=== PATIENT | female | born 1965 | race Caucasian/White ===

== ENCOUNTER → 2018-03-07 12:43 | Outpatient (CLI) | payer OTHER, SELFPAY ==
--- NOTE | 2018-03-07 | DI.MRI.S_ITS ---
PROCEDURE: MR HAND LT WO/W CON INDICATIONS: SYNOVIAL CYSTS OF LEFT WRIST TECHNIQUE: Noncontrast coronal T1 spin echo and STIR, sagittal T1 spin echo with fat saturation and STIR, axial T1 spin echo and T2 fast spin echo with fat saturation. After the administration of contrast, axial/sagittal/coronal T1 spin echo with fat saturation through the left hand. COMPARISON: [facility], CR, HAND 2V LEFT, 03/17/2013, 10:05. [facility], CR, XR HAND 3+ VIEWS BILATERAL, 02/05/2018, 10:43. FINDINGS: Image quality: Excellent. Bones: No fracture identified. There is synovial enhancement and thickening primarily involving the DIP joints of the index and middle fingers, where there is central erosive appearance seen on the comparison radiographs from 02/05/18. Marrow signal change seen in the lunate is present although unclear if there is actual enhancement (possibly cyst) and radiographically this appears unchanged 03/17/13. No associated synovial thickening is seen. Soft tissues: No soft tissue masses are visualized. The scanned muscles demonstrate normal overall bulk and internal signal. No definite tenosynovitis. No pathologic joint effusions are seen. The visualized flexor and extensor tendons appear grossly unremarkable IMPRESSION: Synovial enhancement and thickening most notably at the DIP joints of the index and middle fingers. Given the appearance of the comparison radiographs with central erosion, constellation of findings could represent erosive osteoarthritis. Please correlate clinically. Dictated by: Ken Craft M.D. on 03/07/2018 at 16:27 Approved by: Ken Craft M.D. on 03/07/2018 at 16:49
== END ==
PROVIDERS: PCP Family Medicine; Visit Provider Specialist/Technologist Athletic Trainer
DX: M71.332 Other bursal cyst, left wrist (principal)
CPT/HCPCS: 73220; A9579

== ENCOUNTER 2018-06-22 11:03 | Day surgery (SDC) | payer OTHER, SELFPAY ==
[2018-06-18 08:42] VITALS: BMI 34.3
[2018-06-22] VITALS (7 sets, daily range): BP systolic 135–169; BP diastolic 79–94; PULSE 66–80; RESP 16–20; TEMP 36.3–36.9; O2SAT 94–99; BMI 33.6
--- NOTE | 2018-06-22 12:38 | PM.OP.1 ---
Procedure & Clinicians Procedure: Arthrodesis 1st MTPJ, right foot Same procedure as scheduled: Yes Indications: Painful hallux valgus deformity; painful great toe joint, Right foot Surgeon: Alexandro Sue Click Yes if Unassisted: Yes Anesthesia Type: General and Local Operative Notes Closure Type: primary Specimen(s): none sent Implants & Drains: [place]ue 28 1st MTP fusion locking plate and screws Procedure in detail: Operation: The patient was taken from the day surgery area back to the OR via gurney, after having been given IV antibiotic prophylaxis. She was placed on the OR table in the supine position. General anesthesia was induced by Dr. Jang. Local anesthetic block was performed by infiltration of 12 cc of 50 50 lidocaine. A calf tourniquet was then applied, however, it was not utilized throughout the case. The foot was then prepped and draped in the usual sterile fashion from toes to knee. Procedure: Arthrodesis, 1st MTP joint, right foot (20513) Attention was directed toward the dorsum of the right foot. Following the previous surgical incision over the 1st MTP joint a slightly curvilinear incision was placed approximately 8 cm in length. Sharp and blunt dissection were carried down through the subcutaneous tissue layer and then there was quite a bit of scar tissue to cut through to get down to the bone and joint. Cautery was used for that avoiding any irritation or injury to the adjacent neurovascular structures. The 1st MTP joint was then entered and the capsular and ligamentous tissues freed up around it for adequate exposure. Dorsal dissection was carried over the 1st metatarsal. Unfortunately, the 2 remaining screws in her metatarsal were buried and could just barely be seen beneath the bone, it was actually completely grown over. These were not disturbed, as that would of required extensive amount of bony destruction to get them out of the way. At this point then joint preparation was performed, denuding the cartilage from the 1st metatarsal and base of the proximal phalanx utilizing standard Reamer instrumentation and baseball bur respectively. Cartilage was removed down to subchondral bone. Additional K-wire fenestration was performed in the met head and phalanx base. Good subchondral bleeding was achieved. The wound was aggressively irrigated with antibiotic solution. Toe was then held in anatomic position and temporarily pinned with a K-wire. Angular corrections was adequate and so using the drill guide, a 4.0 partially-threaded lag screw was placed from medial to lateral across the fusion site. The paragon-28 1st MP joint fusion locking plate system was then utilized placing a size medium, 0? angle, right locking plate dorsally and then sequentially anchoring down with locking screws. The most proximal screw in the plate could not be filled, due to the previously placed and retained deep screws. Excellent compression was found on tightening down to the plate and fixation was optimum. The wound was aggressively irrigated again with antibiotic solution. Closure of the wound was then performed in layers utilizing 3 0, 4 0, and 5 0 Vicryl respectively for the capsule, subcu and skin. Steri-Strips were placed. A postop injection of 18 cc of 0.5% Marcaine plain was administered. A light gauze compression bandage was then applied. The patient tolerated the procedure and anesthesia well without any apparent complications. She left the OR with vital signs stable and digital perfusion intact. She will be nonweightbearing for approximately 1 week. Will be seen for bandage check next week in the [place] office.
--- NOTE | 2018-06-22 12:41 | P.OP_ITS ---
Procedure & Clinicians Procedure: Arthrodesis 1st MTPJ, right foot Same procedure as scheduled: Yes Indications: Painful hallux valgus deformity; painful great toe joint, Right foot Surgeon: Alexandro Sue Click Yes if Unassisted: Yes Anesthesia Type: General and Local Operative Notes Closure Type: primary Specimen(s): none sent Implants & Drains: [place] 28 1st MTP fusion locking plate and screws Procedure in detail: Operation: The patient was taken from the day surgery area back to the OR via gurney, after having been given IV antibiotic prophylaxis. She was placed on the OR table in the supine position. General anesthesia was induced by Dr. Jang. Local anesthetic block was performed by infiltration of 12 cc of 50 50 lidocaine. A calf tourniquet was then applied , however, it was not utilized throughout the case. The foot was then prepped and draped in the usual sterile fashion from toes to knee. Procedure: Arthrodesis, 1st MTP joint, right foot ([id number]) Attention was directed toward the dorsum of the right foot. Following the previous surgical incision over the 1st MTP joint a slightly curvilinear incision was placed approximately 8 cm in length. Sharp and blunt dissection were carried down through the subcutaneous tissue layer and then there was quite a bit of scar tissue to cut through to get down to the bone and joint. Cautery was used for that avoiding any irritation or injury to the adjacent neurovascular structures. The 1st MTP joint was then entered and the capsular and ligamentous tissues freed up around it for adequate exposure. Dorsal dissection was carried over the 1st metatarsal. Unfortunately, the 2 remaining screws in her metatarsal were buried and could just barely be seen beneath the bone, it was actually completely grown over. These were not disturbed, as that would of required extensive amount of bony destruction to get them out of the way. At this point then joint preparation was performed, denuding the cartilage from the 1st metatarsal and base of the proximal phalanx utilizing standard Reamer instrumentation and baseball bur respectively. Cartilage was removed down to subchondral bone. Additional K-wire fenestration was performed in the met head and phalanx base. Good subchondral bleeding was achieved. The wound was aggressively irrigated with antibiotic solution. Toe was then held in anatomic position and temporarily pinned with a K-wire. Angular corrections was adequate and so using the drill guide, a 4.0 partially-threaded lag screw was placed from medial to lateral across the fusion site. The paragon-28 1st MP joint fusion locking plate system was then utilized placing a size medium, 0 ? angle, right locking plate dorsally and then sequentially anchoring down with locking screws. The most proximal screw in the plate could not be filled, due to the previously placed and retained deep screws. Excellent compression was found on tightening down to the plate and fixation was optimum. The wound was aggressively irrigated again with antibiotic solution. Closure of the wound was then performed in layers utilizing 3 0, 4 0, and 5 0 Vicryl respectively for the capsule, subcu and skin. Steri-Strips were placed. A postop injection of 18 cc of 0.5% Marcaine plain was administered. A light gauze compression bandage was then applied. The patient tolerated the procedure and anesthesia well without any apparent complications. She left the OR with vital signs stable and digital perfusion intact. She will be nonweightbearing for approximately 1 week. Will be seen for bandage check next week in the [place] office.
[2018-06-22] MEDS: CEFAZOLIN 2 GM/100 ML FROZ.PIGGY IV (13:00)
[2018-06-22] MEDS: LIDOCAINE 2% W/EPI INJ 20 ML INJ (13:18)
[2018-06-22] MEDS: LIDOCAINE 2% INJ SDV 5 ML INJ (13:18)
[2018-06-22] MEDS: BUPIVACAINE 0.5% (PF) VIAL 30 ML INJ (13:20)
== END 2018-06-22 15:35 | disposition home or self-care (01) ==
LOC: OR 11:04
PROVIDERS: PCP Family Medicine; Visit Provider Podiatrist
PROC: (CPT 28750; principal; 2018-06-22 12:30)
DX: M21.611 Bunion of right foot (principal); I48.91 Unspecified atrial fibrillation; I10 Essential (primary) hypertension; M79.7 Fibromyalgia; G43.909 Migraine, unspecified, not intractable, without status migrainosus
CPT/HCPCS: 28750; J0690; J1100; J2250; J2405; J2704; J3010

== ENCOUNTER 2019-01-11 20:01 | Emergency (ER) | payer OTHER, SELFPAY ==
[2019-01-11 20:05] VITALS: BP 151/88; PULSE 80; RESP 16; TEMP 37.1; O2SAT 98; BMI 35.4
--- NOTE | 2019-01-11 20:55 | PC.NURSE ---
Pt Hx Afib, on coumadin. LAST INR 3.7 on Monday. presents today with lac to the left 2nd digit from cutting herself with rotary tool yesterday. Wearing pressure dressing from home. Bleeding control. States tetanus shot is up to date. C/O pain 01/16. Awaiting on MD. Will continue to monitor.
--- NOTE | 2019-01-11 22:16 | PC.NURSE ---
Wound cleaned. MD applied sutures. Dressing applied. Pt verbalized understanding of d/c instructions and f/u in 7 days with PCP for removal. Accompanied by family.
[2019-01-11 22:21] VITALS: BP 157/88; PULSE 66; RESP 17; O2SAT 98
--- NOTE | 2019-01-12 06:07 | ED_ITS ---
HPI - Wound/Laceration General Chief Complaint: Wound/Laceration Stated Complaint: LEFT HAND INDEX FINGER LACERATION Time Seen by Provider: 01/11/19 20:04 Source: patient and family Mode of arrival: ambulatory Limitations: no limitations History of Present Illness HPI narrative: 53-year-old female with extensive cardiac history on Coumadin presents with her in the chief complaint of an accidental laceration of her left thumb while working at home. She has had a fair amount of bleeding but denies numbness, tingling or weakness. Her tetanus is current. Her laceration was suffered yesterday and they immediately applied pressure put on a dressing. She is non covered until today and up on on wrapping and noted that it was rather deep and would need to be repaired Related Data Home Medications Medication Instructions Recorded Confirmed cyclobenzaprine 5 - 20 mg PO BEDTIME PRN 06/18/18 06/18/18 diltiazem HCl 120 mg PO BID 06/18/18 06/22/18 hzbedlgvwna-[id number]-kkg C-Mn 1 tab PO BID 06/18/18 06/22/18 [Glucosamine Chondroitin MaxStr] hydrochlorothiazide 12.5 mg PO DAILY 06/18/18 06/22/18 magnesium 250 mg PO DAILY 06/18/18 06/22/18 venlafaxine 75 mg PO BID 06/18/18 06/22/18 warfarin 5 mg PO DAILY 06/18/18 06/22/18 Allergies Allergy/AdvReac Type Severity Reaction Status Date / Time bee venom protein (honey bee) Allergy Unknown Unlisted Verified 01/11/19 20:11 hydrocodone AdvReac Mild Headache Verified 01/11/19 20:11 Review of Systems Constitutional Denies chills, Denies fever(s), Denies lethargy and Denies weakness Eyes Denies change in vision, Denies eye discharge, Denies irritation and Denies loss of vision ENT Ears, Nose, Mouth, and Throat: Denies change in voice, Denies neck pain and Denies sore throat Cardiovascular Denies chest pain, Denies irregular heart rhythm, Denies lightheadedness, Denies palpitations, Denies dyspnea, Denies dyspnea on exertion and Denies orthopnea Respiratory Denies cough, Denies dyspnea, Denies dyspnea on exertion and Denies wheezing Gastrointestinal Gastrointestinal: Denies abdominal pain, Denies change in bowel habits, Denies diarrhea, Denies nausea and Denies vomiting Genitourinary Denies hematuria, Denies flank pain, Denies urinary incontinence and Denies urinary urgency Musculoskeletal Denies neck pain Integumentary/Breasts Denies pruritus, Denies erythema, Denies rash and Reports wounds Neurologic Denies confusion, Denies loss of vision and Denies weakness Psychiatric Denies anxiety, Denies confusion, Denies depression, Denies homicidal ideation and Denies suicidal ideation Endocrine Denies palpitations Hematologic/Lymphatic Denies easy bruising Allergic/Immunologic Denies wheezing [facility] Medical History Afib (Acute) Ankle sprain (Acute) Anxiety (Acute) Bunion of right foot (Acute) Chronic back pain (Acute) Concussion (Acute) Depression (Acute) Dysfunctional uterine bleeding (Acute) Dysphoric mood (Acute) Fatigue (Acute) Fibromyalgia (Acute) GERD (gastroesophageal reflux disease) (Acute) Grief reaction (Acute) Hyperglycemia (Acute) Hypertension (Acute) Lumbar strain (Acute) Metatarsalgia (Acute) Migraine headache (Acute) Murmur, cardiac (Acute) Osteoarthropathy (Acute) Pain in joint of right foot (Acute) Palpitations (Acute) Paresthesia of both hands (Acute) Right calf pain (Acute) Rotator cuff tear (Acute) Sleep disturbance (Acute) Somatic dysfunction of spine, cervical (Acute) Somnolence (Acute) Synovial cyst of left wrist (Acute) Surgical History H/O repair of rotator cuff (Acute) H/O: (Acute) History of arthroscopic knee surgery (Acute) History of breast augmentation (Acute) History of breast surgery (Acute) History of bunionectomy (Acute ~12/29/17) History of cholecystectomy (Acute) History of elbow surgery (Acute) History of endometrial ablation (Acute) History of tonsillectomy (Acute) Hx of hand surgery (Acute) S/P foot surgery, right (Acute) Status post wrist surgery (Acute) Social History household members: spouse Smoking Status: Former smoker alcohol intake: current Social History household members: spouse Smoking Status: Former smoker alcohol intake: current Exam Narrative Exam Narrative: GEN: AOx3 and in mild distress EYES: Pupils are equal, round, and reactive to light and accommodation. Extraoccular muscles are intact bilaterally. There is no subconjunctival hemorrhage or exudate. CHEST: Lungs are clear to auscultation bilaterally and free of wheezes, rales, or rhonchi. Heart rate is regular rhythm, there are no murmurs, clicks, rubs, or gallops. There is no chest wall tenderness. ABD: Abdomen is soft and nontender. There is no guarding or rebound. Bowel sounds are normal in all 4 quadrants. There is no mass or organomegaly. EXT: Full painless ROM of all extremities with no loss of sensation or strength. SKIN: 1.5 cm laceration medial aspect of left thumb approaching the nail full but not involving the nail or nail bed. Minimal active bleeding, visualized under a bloodless field and no tendon or bone involvement noted Warm, pink, and dry. No erythema or rash Initial Vital Signs Initial Vital Signs: Vital Signs Temperature 98.7 F 01/11/19 20:05 Pulse Rate 80 01/11/19 20:05 Respiratory Rate 16 01/11/19 20:05 Blood Pressure 151/88 H 01/11/19 20:05 Pulse Oximetry 98 01/11/19 20:05 Procedures Laceration Repair Laceration 1: Site: hand Side (If applicable): left Size (cm): 1.5 Description: flap Depth: simple, single layer Local Anesthetic: lidocaine 1% and with bicarb Amount of anesthesia used (mL): 2 Pre-repair: wound explored and irrigated extensively Skin layer closed with: nylon Size (cm): 5-0 Number of sutures: 4 Technique: simple, interrupted Course Vital Signs - 8 hr 01/11/19 22:21 Pulse Rate 66 Respiratory Rate 17 Blood Pressure [Right Arm] 157/88 H Pulse Oximetry 98 Discharge Plan Departure Patient Disposition: Home Clinical Impression: Laceration Discharge Date/Time: 01/11/19 22:21 Interventions: ED Discharge Assessment Last Done: 01/11/19 22:17 Instructions: DI for Laceration Repair Activity Restrictions/Additional Instructions: Please keep the wound clean and dry to the best of your ability. Please monitor for signs of infection such as redness to the skin or increasing pain. Have the sutures removed by your doctor in about 7 days. If you are unable to get into your doctor, we would be happy to remove the sutures in that same timeframe. Prescriptions: No Action cyclobenzaprine 10 mg Tablet 5 - 20 mg PO BEDTIME PRN (Reason: muscle spasms) RF: 0 venlafaxine 150 mg Capsule,Extended Release 24hr 75 mg PO BID RF: 0 diltiazem HCl 120 mg Capsule,Extended Release 12 Hr 120 mg PO BID RF: 0 warfarin 5 mg Tablet 5 mg PO DAILY RF: 0 magnesium 250 mg Tablet 250 mg PO DAILY RF: 0 enkiidzizqq-qytlwbesp-wua C-Mn [Glucosamine Chondroitin MaxStr] 500-400 mg Capsule 1 tab PO BID RF: 0 hydrochlorothiazide 12.5 mg Tablet 12.5 mg PO DAILY RF: 0 Referrals: Darron Fierro DO [Primary Care Provider] -
== END 2019-01-11 22:21 | disposition home or self-care (01) ==
PROVIDERS: Emergency Provider Emergency Medicine; PCP Family Medicine
DX: S61.211A Laceration without foreign body of left index finger without damage to nail, initial encounter (principal); W26.8XXA Contact with other sharp object(s), not elsewhere classified, initial encounter; Z79.01 Long term (current) use of anticoagulants
CPT/HCPCS: 12001; 99282; 99283

== ENCOUNTER 2019-09-30 13:41 | Emergency (ER) | payer OTHER, SELFPAY ==
[2019-09-30 13:57] VITALS: BP 162/93; PULSE 79; RESP 18; O2SAT 99
--- NOTE | 2019-09-30 13:58 | ED.GENADULT ---
HPI - General Adult General Chief complaint: Trauma Stated complaint: Fell Off Horse, Landed On Left Elbow Time Seen by Provider: 09/30/19 13:55 Source: patient Mode of arrival: Ambulatory Limitations: no limitations History of Present Illness HPI narrative: 54-year-old female here for evaluation of left elbow injury. Patient states that approximately 1 hour prior to arrival here in the emergency department she was riding her horse when the horse got spooked and she fell off the horse landing on her left elbow. She did not hit her head. There was no loss of consciousness. She was wearing a helmet. She sustained no other injury except for pain to her left elbow. Has never injured this in the past. Has not done anything for prior to arrival. Related Data Home Medications Medication Instructions Recorded Confirmed cyclobenzaprine 5 - 20 mg PO BEDTIME PRN 06/18/18 06/18/18 diltiazem HCl 120 mg PO BID 06/18/18 06/22/18 qjwlvjglrpy-ihzawwiow-qka C-Mn 1 tab PO BID 06/18/18 06/22/18 [Glucosamine Chondroitin MaxStr] hydrochlorothiazide 12.5 mg PO DAILY 06/18/18 06/22/18 magnesium 250 mg PO DAILY 06/18/18 06/22/18 venlafaxine 75 mg PO BID 06/18/18 06/22/18 warfarin 5 mg PO DAILY 06/18/18 06/22/18 Allergies Allergy/AdvReac Type Severity Reaction Status Date / Time bee venom protein (honey bee) Allergy Unknown Unlisted Verified 01/11/19 20:11 hydrocodone AdvReac Mild Headache Verified 01/11/19 20:11 Review of Systems Constitutional Constitutional: Denies fever(s), Denies frequent falls and Denies headache(s) ENT Ears, Nose, Mouth, and Throat: Denies headache(s) and Denies disequilibrium Cardiovascular Cardiovascular: Denies chest pain and Denies dyspnea Respiratory Respiratory: Denies dyspnea Gastrointestinal Gastrointestinal: Denies abdominal pain Musculoskeletal Musculoskeletal: Denies tingling Comments: Left elbow pain Integumentary/Breasts Skin/Breast: Denies lesions and Denies rash Neurologic Neurologic: Denies behavioral changes, Denies frequent falls, Denies headache(s), Denies tingling, Denies paresthesias and Denies disequilibrium Psychiatric Psychiatric: Denies behavioral changes Hematologic/Lymphatic Hematologic/Lymphatic: Denies easy bleeding and Denies easy bruising Patient History Medical History Afib (Acute) Ankle sprain (Acute) Anxiety (Acute) Bunion of right foot (Acute) Chronic back pain (Acute) Concussion (Acute) Depression (Acute) Dysfunctional uterine bleeding (Acute) Dysphoric mood (Acute) Fatigue (Acute) Fibromyalgia (Acute) GERD (gastroesophageal reflux disease) (Acute) Grief reaction (Acute) Hyperglycemia (Acute) Hypertension (Acute) Lumbar strain (Acute) Metatarsalgia (Acute) Migraine headache (Acute) Murmur, cardiac (Acute) Osteoarthropathy (Acute) Pain in joint of right foot (Acute) Palpitations (Acute) Paresthesia of both hands (Acute) Right calf pain (Acute) Rotator cuff tear (Acute) Sleep disturbance (Acute) Somatic dysfunction of spine, cervical (Acute) Somnolence (Acute) Synovial cyst of left wrist (Acute) Social History household members: spouse Smoking Status: Former smoker alcohol intake: current Smoking Status: Former smoker alcohol intake frequency: holidays/special occasions only Substance Use Type: does not use Exam Initial Vital Signs Initial Vital Signs: Vital Signs Pulse Rate 79 09/30/19 13:57 Respiratory Rate 18 09/30/19 13:57 Blood Pressure 162/93 H 09/30/19 13:57 Pulse Oximetry 99 09/30/19 13:57 Const General: cooperative, comfortable and well developed Limitations: mental status not altered HENMT Head: normal to inspection and normocephalic Resp Effort & Inspection: normal respiratory effort Cardio Rate: regular rate Skin Lesions: no lesions Rashes: no rashes Neuro General: alert and awake Cognition: normal cognition Speech: speech normal Extrem General: capillary refill normal Other: Tenderness to palpation along the medial epicondyle of the left elbow. Lateral epicondyle and olecranon process unremarkable. Patient able to pronate and supinate. Left shoulder left wrist unremarkable. Psych Appearance: grossly normal and well kempt Course Orders Ordered: ED Orders 09/30/19 13:58 XR elbow LT min 3V Stat Vital Signs Vital signs: Vital Signs - 8 hr 09/30/19 13:57 Pulse Rate 79 Respiratory Rate 18 Blood Pressure 162/93 H Pulse Oximetry 99 Medical Decision Making Imaging Data Extremity x-ray #1: Radiologist's Impression: [address] [address] XRay Report Signed Patient: Devora Alford [facility]#: [id number] : 1965Acct:[id number] Age/Sex: 54 / FDate of Service: 09/30/19 Loc: ED Accession Number: [id number] Procedure: XR elbow LT min 3V Ordering Provider: Chong Cummins D.O. PROCEDURE: XR ELBOW LT MIN 3V INDICATIONS: Medial epicondyle pain after fall TECHNIQUE: 3 views of the elbow were acquired. COMPARISON: None. FINDINGS: Bones: No displaced fractures or dislocations. No suspicious bony lesions. Mild degenerative changes of the elbow are present. Soft tissues: No elbow joint effusion. No suspicious soft tissue calcifications. IMPRESSION: No acute fractures of the elbow. Dictated by: Aron Faith M.D. on 09/30/2019 at 13:15 Approved by: Aron Faith M.D. on 09/30/2019 at 13:25 [facility] Narrative Medical decision making narrative: Patient is neurovascularly intact. She described in reported no other injuries except pain to her left elbow. There was no fractures on the x-rays. She was able to pronate and supinate. Pain seems to be isolated to the medial epicondyle. She was given a sling for comfort. Will hold on further workup for now. No indication for head CT despite the fact she is on Coumadin. She did not hit her head. She was given return precautions and follow-up instructions. She expressed understanding and agreement. Discharge Plan Departure Patient Disposition: Home Clinical Impression: Contusion of elbow, left Qualifiers: Encounter type: initial encounter Qualified Code(s): S50.02XA - Contusion of left elbow, initial encounter Instructions: DI for Elbow Pain Activity Restrictions/Additional Instructions: You can use the sling as needed for comfort. Also recommend that you ice your elbow. Contact her primary provider for follow-up. Return to the emergency department for any new or worsening symptoms Prescriptions: No Action cyclobenzaprine 10 mg Tablet 5 - 20 mg PO BEDTIME PRN (Reason: muscle spasms) RF: 0 venlafaxine 150 mg Capsule,Extended Release 24hr 75 mg PO BID RF: 0 diltiazem HCl 120 mg Capsule,Extended Release 12 Hr 120 mg PO BID RF: 0 warfarin 5 mg Tablet 5 mg PO DAILY RF: 0 magnesium 250 mg Tablet 250 mg PO DAILY RF: 0 dhartsqyjer-ejfomeynb-sxn C-Mn [Glucosamine Chondroitin MaxStr] 500-400 mg Capsule 1 tab PO BID RF: 0 hydrochlorothiazide 12.5 mg Tablet 12.5 mg PO DAILY RF: 0 Referrals: Darron Fierro DO [Primary Care Provider] -
--- NOTE | 2019-09-30 15:06 | PC.NURSE ---
Patient reports fall from horse and landed on left elbow. Pain to left elbow 7/10,is on coumadin. Denies hitting her head. ice helping with pain to elbow.
[2019-09-30 15:09] VITALS: BP 148/68; PULSE 71; RESP 16; O2SAT 100
== END 2019-09-30 15:10 | disposition home or self-care (01) ==
PROVIDERS: Emergency Provider Emergency Medicine; PCP Family Medicine
DX: S50.02XA Contusion of left elbow, initial encounter (principal); V80.010A Animal-rider injured by fall from or being thrown from horse in noncollision accident, initial encounter
CPT/HCPCS: 73080; 99282; 99283

== ENCOUNTER → 2019-10-02 10:11 | Outpatient (CLI) | payer OTHER, SELFPAY ==
--- NOTE | 2019-10-02 10:57 | DI.CT.S_ITS ---
PROCEDURE: CT SOFT TISSUE NECK W CON INDICATIONS: Localized enlarged lymph nodes TECHNIQUE: After the administration of intravenous contrast, 3.0 mm axial sections acquired from the sella to the aortic arch. Additional oblique axial 3.0 mm sections acquired through the pharynx. 3 mm thick coronal and sagittal reformats were generated. For radiation dose reduction, the following was used: automated exposure control. COMPARISON: None. FINDINGS: Image quality: Excellent. Lymph nodes: Borderline prominent cervical lymph nodes are seen, without suspicious enlargement identified. Vessels: Visualized vasculature appears patent. Neck spaces: The oropharynx, nasopharynx, and pharynx demonstrate no mucosal lesions. The vocal cords, false vocal cords, pyriform sinuses, epiglottis, vallecula, and tongue base all appear normal. Extramucosal spaces appear unremarkable. Glands: The parotid and submandibular glands appear normal. Thyroid gland demonstrates a 5 mm low-density lesion, as on series 2 image 49. Miscellaneous: Visualized brain and orbits appear normal. Lung apices appear clear. Superficial soft tissues appear normal. Bones: No suspicious bony lesions. Visualized sinuses and mastoids appear unremarkable. IMPRESSION: Borderline prominent neck lymph nodes, without dilan enlargement identified. A 5 mm right thyroid lobe lesion is incidentally noted. If clinically appropriate, please consider a dedicated thyroid ultrasound for further evaluation. Dictated by: Kalen Rene M.D. on 10/02/2019 at 10:43 Approved by: Kalen Rene M.D. on 10/02/2019 at 10:46
== END ==
PROVIDERS: PCP Family Medicine; Referring Provider Family Medicine; Visit Provider Family Medicine
DX: R59.0 Localized enlarged lymph nodes (principal); E07.9 Disorder of thyroid, unspecified
CPT/HCPCS: 70491; Q9967

== ENCOUNTER → 2019-10-10 12:45 | Outpatient (CLI) | payer OTHER, SELFPAY ==
--- NOTE | 2019-10-10 | DI.US.S_ITS ---
PROCEDURE: US THYROID INDICATIONS: THYROID NODULE TECHNIQUE: Real-time scanning was performed of the thyroid gland, with image documentation. COMPARISON: None. FINDINGS: Right: Thyroid lobe measures 4.3 x 1.2 x 1.7 cm, and is homogeneous in echotexture. Left: Thyroid lobe measures 4.3 x 1.3 x 1.4 cm, and is homogenous in echotexture. Isthmus: 5 mm thick. Nodule number: 1 Location: Right lobe Size: 0.9 x 1.0 x 1.1 cm. Composition: Solid Echogenicity: Hypoechoic Shape: wider than tall. Margins: Ill-defined Echogenic foci: None Total points: 4 ACR TI-RADS category: 4 Nodule number: 2 Location: Left thyroid lobe Size: 0.6 x 0.6 x 0.6 cm. Composition: Solid Echogenicity: Hypoechoic Shape: wider than tall. Margins: Smooth Echogenic foci: None Total points: 4 ACR TI-RADS category: 4 IMPRESSION: 1. 1.1 cm right thyroid lobe nodule. TI-RADS 4. Sonographic followup at one, 3, and 5 years recommended. 2. 0.6 cm left thyroid lobe nodule. TI RADS 4. No follow up recommended given size. ACR TI-RADS definitions and recommendations: TI-RADS 1 (benign): 0 points. FNA not needed. TI-RADS 2 (not suspicious): 2 points. FNA not needed. TI-RADS 3 (mildly suspicious): 3 points. * FNA if 2.5 cm or larger, follow up if 1.5 cm or larger (at 1, 3, and 5 years). TI-RADS 4 (moderately suspicious): 4-6 points. * FNA if 1.5 cm or larger, follow up if 1 cm or larger (at 1, 2, 3, and 5 years). TI-RADS 5 (highly suspicious): 7 points or more. * FNA if 1 cm or larger, follow up if 0.5 cm or larger (every year for 5 years). Dictated by: Anna Ibarra M.D. on 10/10/2019 at 14:10 Approved by: Anna Ibarra M.D. on 10/10/2019 at 14:17
== END ==
PROVIDERS: PCP Family Medicine; Referring Provider Family Medicine; Visit Provider Family Medicine
DX: E04.2 Nontoxic multinodular goiter (principal)
CPT/HCPCS: 76536

== ENCOUNTER 2019-12-09 16:50 | Emergency (ER) | payer OTHER, SELFPAY ==
[2019-12-09 16:54] VITALS: PULSE 68; RESP 16; TEMP 35.8; O2SAT 99; BMI 30.9
--- NOTE | 2019-12-09 19:34 | ED_ITS ---
HPI - Skin/Abscess/Foreign Bdy <Jaqueline Morrow PA-C - Last Filed: 12/10/19 00:44> General Chief complaint: Skin/Abscess/Foreign Body Stated complaint: RIGHT HAND WOUND HEAT SWELLING Time Seen by Provider: 12/09/19 19:01 Source: patient Mode of arrival: Ambulatory Limitations: no limitations History of Present Illness HPI narrative: This is a 54-year-old woman with a history of WPW with ablation, on warfarin who presents to the emergency department with right hand pain, redness and swelling after sustaining an injury on , 4 days ago when she was playing with her dog. She states that she was throwing a pine cone really hard and her thumb smashed directly op and her dog's canine making, drawing blood and making a small puncture wound. She kept it clean and it seemed okay but then yesterday she started having stiffness in the thumb joint adjacent to the puncture as well as a little bit of redness and heat over the thumb and then over the top of her hand that has worsened today so she presented to the emergency department. She says the last couple of days she has had less appetite than usual and has also had some mild headaches although acknowledges that she often does have mild headaches. She denies any other symptoms including fever, chills, nausea, vomiting, diarrhea, abdominal pain or any other symptoms. MD complaint: discoloration and other (Pain, heat, puncture from dog tooth) Onset (ago): day(s) (4 ) Tetanus up to date: yes (2017) Location: L hand Severity: mild Severity scale (1-10): 1 Quality: aching and constant Pain Consistency: constant Relieving factors: none Exacerbating factors: palpation Context: other (smashed hand into dog's canine) Associated symptoms: other (slightly reduced appetite last 2 days) Related Data Home Medications Medication Instructions Recorded Confirmed cyclobenzaprine 5 - 20 mg PO BEDTIME PRN 06/18/18 06/18/18 diltiazem HCl 120 mg PO BID 06/18/18 06/22/18 pzqrhavargg-btokykovu-ffg C-Mn 1 tab PO BID 06/18/18 06/22/18 [Glucosamine Chondroitin MaxStr] hydrochlorothiazide 12.5 mg PO DAILY 06/18/18 06/22/18 magnesium 250 mg PO DAILY 06/18/18 06/22/18 venlafaxine 75 mg PO BID 06/18/18 06/22/18 warfarin 5 mg PO DAILY 06/18/18 06/22/18 Previous Rx's Medication Instructions Recorded amoxicillin-pot clavulanate 1 tab PO BID #14 tab 12/09/19 amoxicillin-pot clavulanate 1 tab PO BID #14 tab 12/09/19 Allergies Allergy/AdvReac Type Severity Reaction Status Date / Time bee venom protein (honey bee) Allergy Unknown Unlisted Verified 12/09/19 16:58 hydrocodone AdvReac Mild Headache Verified 12/09/19 16:58 Review of Systems <Jaqueline Morrow PA-C - Last Filed: 12/10/19 00:44> Review of Systems Narrative: GENERAL: Denies chills, fatigue, malaise, fever, sweats. HEENT: Denies sinus pain, ear pain, sore throat, difficulty swallowing, dizziness. RESPIRATORY: Denies dyspnea, cough, wheezing, hemoptysis, sputum. CARDIOVASCULAR: Denies chest pain, palpitations, orthopnea, edema, GASTROINTESTINAL: Denies nausea, vomiting, abdominal pain, diarrhea, co nstipation, melena. : Denies dysuria, frequency, incontinence, hematuria, urinary retention. MUSCULOSKELETAL: denies weakness, joint pain, or bony pain SKIN: Positive for grossly healed puncture wound to her right thumb and redness to the dorsum of her right hand, positive for slight ?stiff feeling? with movement of her right digits and wrist Denies additional rash, skin lesions, or other NEUROLOGIC: Denies weakness, headache, numbness, change in speech, confusion, seizures, incoordination. PSYCHIATRIC: No concerning psychosocial issues. 12 point review of systems is negative except for those stated above Patient History <Jaqueline Morrow PA-C - Last Filed: 12/10/19 00:44> Social History household members: spouse Smoking Status: Former smoker alcohol intake: current Smoking Status: Former smoker alcohol intake frequency: holidays/special occasions only Substance Use Type: does not use Exam <JUAN ANTONIO Chatman Last Filed: 12/10/19 00:44> Narrative Exam Narrative: GENERAL: 54year old patient appears stated age. Well-nourished, well-developed patient, in mild distress. HEAD: Atraumatic. Normocephalic. EYES: Pupils equal round and reactive. Extraocular motions intact. No scleral icterus. No injection or drainage. ENT: Nose without bleeding, purulent drainage. Throat without erythema, tonsillar hypertrophy or exudate. Airway patent. NECK: Trachea midline. Non tender CARDIOVASCULAR: Regular rate and rhythm without murmurs, gallops, or rubs. RESPIRATORY: Clear to auscultation. Breath sounds equal bilaterally. No wheezes, rales, or rhonchi. GASTROINTESTINAL: Abdomen soft, non-tender, nondistended. EXTREMITIES: There is an approximately 6 x 7 cm area of slight erythema, with tenderness and heat to the dorsum of her right hand it is associated with a very slightly erythematous region surrounding the healing puncture wound. The right 1st digit is slightly swollen in appearance compared to the left 1st digit. Range of motion is intact in the fingers and wrist. Capillary refill is less than 2 seconds sensation is intact in the affected hand. No edema or joint tenderness. BACK: Nontender without deformity or crepitance. No flank tenderness. NEURO: AOx3. SKIN: No rash or erythema of visible areas Initial Vital Signs Initial Vital Signs: Vital Signs Temperature 96.4 F L 12/09/19 16:54 Pulse Rate 68 12/09/19 16:54 Respiratory Rate 16 12/09/19 16:54 Pulse Oximetry 99 12/09/19 16:54 <Lori Woodard MD - Last Filed: 12/10/19 03:25> Initial Vital Signs Initial Vital Signs: Vital Signs Temperature 96.4 F L 12/09/19 16:54 Pulse Rate 68 12/09/19 16:54 Respiratory Rate 16 12/09/19 16:54 Pulse Oximetry 99 12/09/19 16:54 Course <Jaqueline Morrow PA-C - Last Filed: 12/10/19 00:44> Orders Ordered: ED Orders 12/09/19 19:48 XR hand RT min 3V Stat 12/09/19 20:07 Complete Blood Count AUTO DIFF Stat Prothrombin Time INR Stat Discontinued Medications Amoxicillin/Clavulanate Potassium (Augmentin 875-125 Mg) 1 tab PO NOW ONE Stop: 12/09/19 20:22 Last Admin: 12/09/19 20:42 Dose: 1 tab Documented by: JOYCE Vital Signs Vital signs: Vital Signs - 8 hr 12/09/19 21:01 Pulse Rate 63 Respiratory Rate 16 Blood Pressure [Left Arm] 179/86 H Pulse Oximetry 98 <Lori Woodard MD - Last Filed: 12/10/19 03:25> Orders Ordered: ED Orders 12/09/19 19:48 XR hand RT min 3V Stat 12/09/19 20:07 Complete Blood Count AUTO DIFF Stat Prothrombin Time INR Stat Discontinued Medications Amoxicillin/Clavulanate Potassium (Augmentin 875-125 Mg) 1 tab PO NOW ONE Stop: 12/09/19 20:22 Last Admin: 12/09/19 20:42 Dose: 1 tab Documented by: JOYCE Vital Signs Vital signs: Vital Signs - 8 hr 12/09/19 21:01 Pulse Rate 63 Respiratory Rate 16 Blood Pressure [Left Arm] 179/86 H Pulse Oximetry 98 MDM - Skin/Abscess/Foreign Bdy <Jaqueline Morrow PA-C - Last Filed: 12/10/19 00:44> Differential Diagnosis Differential diagnosis: Likely abscess of skin or subcutaneous tissue Medical Records Attestation: I reviewed the patient's medical records. Lab Data Attestation: I reviewed the patient's lab results. Result diagrams: 12/09/19 20:07 Labs: Lab Results 12/09/19 12/09/19 Range/Units 20:07 20:07 WBC 9.4 (4.5-11.0) X10^3/uL RBC 4.66 (4.0-5.2) X10^6/uL Hgb 14.6 (12.0-16.0) g/dL Hct 41.5 (36-46) % MCV 89.0 (80-100) fL MCH 31.2 (26-34) PG MCHC 35.1 (30-36) % RDW 13.6 (11.6-14.8) % Plt Count 315 (150-400) X10^3/uL Neut % (Auto) 59.3 (50-75) % Lymph % (Auto) 29.7 (25-40) % [place] % (Auto) 8.3 (3-14) % Eos % (Auto) 2.0 (2-4) % Baso % (Auto) 0.7 (0-2) % Neut # (Auto) 5600 (0768-2562) /uL Lymph # (Auto) 2800 (4616-4522) /uL [place] # (Auto) 800 (0-900) /uL Eos # (Auto) 200 (0-450) /uL Baso # (Auto) 100 (0-100) /uL PT 29.6 H (10.1-12.7) SECONDS INR 2.6 H (0.9-1.3) Imaging Data Extremity x-ray #1: Attestation: I personally reviewed and interpreted this imaging study as follows: Radiologist's Impression: [address] [address] XRay Report Signed Patient: Devora Alford [facility]#: [id number] : 1965Acct:[id number] Age/Sex: 54 / FDate of Service: 12/09/19 Loc: ED Accession Number: [id number] Procedure: XR hand RT min 3V Ordering Provider: Jaqueline Morrow P.A-C PROCEDURE: XR HAND RT MIN 3V INDICATIONS: cellulitis/dog canine puncture TECHNIQUE: 3 views of the hand(s) acquired. COMPARISON: [facility], CR, XR HAND 3+ VIEWS BILATERAL, 02/05/2018, 10:43. [facility], , HAND 2V LEFT, 03/17/2013, 10:05. FINDINGS: Bones: No fractures or dislocations. Carpal bones are normally aligned. No suspicious bony lesions. Prominent, multi-digit IP degenerative changes most severe at the second and fifth IP joints demonstrating prominent areas of erosion particularly at these digits. Soft tissues: No suspicious soft tissue calcifications. IMPRESSION: Significant degenerative changes suggestive of erosive arthritis as above. No visualized fracture. Dictated by: Faye Basilio M.D. on 12/09/2019 at 20:34 Approved by: Faye Basilio M.D. on 12/09/2019 at 20:36 MDM Narrative Medical decision making narrative: This is a well-appearing 54-year-old woman with a history significant for Xmnui-Zpdjviggk-Egnop and atrial fibrillation with previous ablation currently on warfarin who presents to the emergency department complaining of increasing right hand pain, redness and swelling since her hand smashed into her dog's canine on 3 days ago and created a small puncture wound. Her exam is consistent with a cellulitis, likely due to the dog tooth puncture wound she sustained on her thumb. I have low suspicion for tendon or tendon sheath involvement or infection at this time and Orthopedics was not consulted. As she is on warfarin therapy and has not had her INR checked in over a month he was checked in the emergency department today she is slightly out of therapeutic range (which for her is 2-2.3) at 2.6. CBC was also checked given her reduced appetite the last few days in association with the progression of her cellulitis over the same time course. This was unremarkable. I have low suspicion for a systemic infection. Given her current therapy with warfarin, she was given specific instructions regarding frequent INR checks during antibiotic therapy, specifically to have it checked at least every 3 days. She was initiated with therapy of Augmentin here in the emergency department 1st dose was given, with prescription for 7 days course of antibiotics to follow-up. She was provided with emergency return precautions, and all questions were answered. <Lori Woodard MD - Last Filed: 12/10/19 03:25> Lab Data Labs: Lab Results 12/09/19 12/09/19 Range/Units 20:07 20:07 WBC 9.4 (4.5-11.0) X10^3/uL RBC 4.66 (4.0-5.2) X10^6/uL Hgb 14.6 (12.0-16.0) g/dL Hct 41.5 (36-46) % MCV 89.0 (80-100) fL MCH 31.2 (26-34) PG MCHC 35.1 (30-36) % RDW 13.6 (11.6-14.8) % Plt Count 315 (150-400) X10^3/uL Neut % (Auto) 59.3 (50-75) % Lymph % (Auto) 29.7 (25-40) % [place] % (Auto) 8.3 (3-14) % Eos % (Auto) 2.0 (2-4) % Baso % (Auto) 0.7 (0-2) % Neut # (Auto) 5600 (3612-5784) /uL Lymph # (Auto) 2800 (8392-5006) /uL [place] # (Auto) 800 (0-900) /uL Eos # (Auto) 200 (0-450) /uL Baso # (Auto) 100 (0-100) /uL PT 29.6 H (10.1-12.7) SECONDS INR 2.6 H (0.9-1.3) Discharge Plan Departure Patient Disposition: Home Clinical Impression: Cellulitis Qualifiers: Site of cellulitis: extremity Site of cellulitis of extremity: upper extremity Laterality: right Qualified Code(s): L03.113 - Cellulitis of right upper limb Discharge Date/Time: 12/09/19 21:21 Instructions: DI for Cellulitis -- Adult Activity Restrictions/Additional Instructions: You for letting us to be part of her care in the emergency department today. I prescribed an antibiotic for your cellulitis, Augmentin. While this antibiotic has less reactivity with warfarin then some do, it is still extremely important to monitor your INR frequently while you are taking the antibiotic, it is extremely important that you have your INR checked 2 to 3 times a week during the course of antibiotic therapy. There is no evidence of an emergent or life threatening illness at this time, but follow up with your doctor in 1-2 days is recommended nonetheless to continue to rule out serious underlying causes of your symptoms. Please call the office for an appointment. Please return to the Emergency Department for any worsening or persistent symptoms. Please take your medications as directed. If you develop any new or worsening symptoms, such as increasing pain, redness, swelling in your hand or any other systemic symptoms such as fever, nausea, vomiting, diarrhea or chills please do not hesitate to seek medical care return to the emergency department. He received your 1st dose of Augmentin in the emergency department today during her visit, and I have a prescribed the remainder of your 7 day course of antibiotics and sent that to the [facility] in [place]. Prescriptions: New amoxicillin-pot clavulanate 875-125 mg tablet 1 tab PO BID Qty: 14 RF: 0 amoxicillin-pot clavulanate 875-125 mg tablet 1 tab PO BID Qty: 14 RF: 0 No Action cyclobenzaprine 10 mg Tablet 5 - 20 mg PO BEDTIME PRN (Reason: muscle spasms) RF: 0 venlafaxine 150 mg Capsule,Extended Release 24hr 75 mg PO BID RF: 0 diltiazem HCl 120 mg Capsule,Extended Release 12 Hr 120 mg PO BID RF: 0 warfarin 5 mg Tablet 5 mg PO DAILY RF: 0 magnesium 250 mg Tablet 250 mg PO DAILY RF: 0 yipoysbjnwc-xcjasypav-gfk C-Mn [Glucosamine Chondroitin MaxStr] 500-400 mg Capsule 1 tab PO BID RF: 0 hydrochlorothiazide 12.5 mg Tablet 12.5 mg PO DAILY RF: 0 Referrals: Darron Fierro DO [Primary Care Provider] - <Lori Woodard MD - Last Filed: 12/10/19 03:25> Cosign ED Attending Cosignature Attestation: I was immediately available in the depart ment for consultation throughout this patient's visit. I agree with documentation as above. Lori Woodard MD
--- NOTE | 2019-12-09 19:48 | DI.RAD.S_ITS ---
PROCEDURE: XR HAND RT MIN 3V INDICATIONS: cellulitis/dog canine puncture TECHNIQUE: 3 views of the hand(s) acquired. COMPARISON: [facility], CR, XR HAND 3+ VIEWS BILATERAL, 02/05/2018, 10:43. [facility], CR, HAND 2V LEFT, 03/17/2013, 10:05. FINDINGS: Bones: No fractures or dislocations. Carpal bones are normally aligned. No suspicious bony lesions. Prominent, multi-digit IP degenerative changes most severe at the second and fifth IP joints demonstrating prominent areas of erosion particularly at these digits. Soft tissues: No suspicious soft tissue calcifications. IMPRESSION: Significant degenerative changes suggestive of erosive arthritis as above. No visualized fracture. Dictated by: Faye Basilio M.D. on 12/09/2019 at 20:34 Approved by: Faye Basilio M.D. on 12/09/2019 at 20:36
[2019-12-09 20:17] LABS: Add Manual Diff / Slide Review NO; Basophils Absolute Auto 100 /uL (0-100); Basophils Percent Auto 0.7 % (0-2); Eosinophils Absolute Auto 200 /uL (0-450); Hematocrit 41.5 % (36-46); Hemoglobin 14.6 g/dL (12.0-16.0); Lymphocytes Absolute Auto 2800 /uL (1100-4500); Lymphocytes Percent Auto 29.7 % (25-40); Mean Corpuscular HGB Conc 35.1 % (30-36); Mean Corpuscular Hemoglobin 31.2 PG (26-34); Monocytes Absolute Auto 800 /uL (0-900); Monocytes Percent Auto 8.3 % (3-14); Neutrophils Absolute Auto 5600 /uL (1500-7000); Neutrophils Percent Auto 59.3 % (50-75); Platelet Count 315 X10^3/uL (150-400); Red Blood Cell Count 4.66 X10^6/uL (4.0-5.2); Red Cell Distribution Width 13.6 % (11.6-14.8); White Blood Cell Count 9.4 X10^3/uL (4.5-11.0)
[2019-12-09 20:24] LABS: INR 2.6 (0.9-1.3); Prothrombin Time 29.6 SECONDS (10.1-12.7)
[2019-12-09] MEDS: AMOXICILLIN/CLAV 875/125 MG 1 TAB PO (20:42)
[2019-12-09 21:01] VITALS: BP 179/86; PULSE 63; RESP 16; O2SAT 98
== END 2019-12-09 21:21 | disposition home or self-care (01) ==
PROVIDERS: Emergency Provider Student in an Organized Health Care Education/Training Program; PCP Family Medicine
DX: L03.113 Cellulitis of right upper limb (principal); Z79.01 Long term (current) use of anticoagulants; W26.9XXA Contact with unspecified sharp object(s), initial encounter
CPT/HCPCS: 36415; 73130; 85025; 85610; 99283

== ENCOUNTER → 2020-09-24 07:37 | Outpatient (CLI) | payer OTHER, SELFPAY ==
--- NOTE | 2020-09-24 | DI.US.S_ITS ---
PROCEDURE: US THYROID INDICATIONS: NON TOXIC SINGULAR NODULE TECHNIQUE: Real-time scanning was performed of the thyroid gland, with image documentation. COMPARISON: [facility], US, US THYROID, 10/10/2019, 13:04. FINDINGS: Right: Thyroid lobe measures 5.1 x 1.7 x 1.7 cm, and is homogeneous in echotexture. Left: Thyroid lobe measures 4.6 x 1.6 x 1.4 cm, and is homogenous in echotexture. Isthmus: 4.0 mm thick. Nodule number: 1 Location: Right mid Size: Decreased at 0.8 x 0.6 x 0.7 cm. Composition: Solid Echogenicity: Hypoechoic Shape: wider than tall. Margins: Smooth Echogenic foci: None Total points: 4 ACR TI-RADS category: Moderately suspicious Nodule number: 2 Location: Left mid Size: No significant change at 1.0 x 0.7 x 0.7 cm. Composition: Solid Echogenicity: Hypoechoic Shape: wider than tall. Margins: Irregular Echogenic foci: None Total points: 5 ACR TI-RADS category: Moderately suspicious IMPRESSION: Stable appearance of small bilateral thyroid nodules. Recommend continued followup ultrasound as detailed below. ACR TI-RADS definitions and recommendations: TI-RADS 1 (benign): 0 points. FNA not needed. TI-RADS 2 (not suspicious): 2 points. FNA not needed. TI-RADS 3 (mildly suspicious): 3 points. * FNA if 2.5 cm or larger, follow up if 1.5 cm or larger (at 1, 3, and 5 years). TI-RADS 4 (moderately suspicious): 4-6 points. * FNA if 1.5 cm or larger, follow up if 1 cm or larger (at 1, 2, 3, and 5 years). TI-RADS 5 (highly suspicious): 7 points or more. * FNA if 1 cm or larger, follow up if 0.5 cm or larger (every year for 5 years). Dictated by: David Chacko [facility] Interpreted: Parveen Loera MD on 09/24/2020 at 13:11 Approved by: Parveen Loera M.D. on 09/24/2020 at 14:44
== END ==
PROVIDERS: PCP Family Medicine; Referring Provider Family Medicine; Visit Provider Family Medicine
DX: E04.2 Nontoxic multinodular goiter (principal)
CPT/HCPCS: 76536

== ENCOUNTER → 2021-09-03 11:55 | Outpatient (CLI) | payer OTHER, SELFPAY ==
--- NOTE | 2021-09-03 11:57 | DI.US.S_ITS ---
PROCEDURE: US THYROID INDICATIONS: FOLLOW-UP NODULES TECHNIQUE: Real-time scanning was performed of the thyroid gland, with image documentation. COMPARISON: [facility], US, US THYROID, 09/24/2020, 8:03. FINDINGS: Right: Thyroid lobe measures 4.2 x 1.9 x 1.7 cm, and is homogeneous in echotexture. Left: Thyroid lobe measures 4 x 1.4 x 1.2 cm, and is homogenous in echotexture. Isthmus: 0.3 cm thick. Nodule number: 1 Location: Right mid Size: 0.8 x 0.8 x 0.6 cm. Unchanged. Composition: Solid Echogenicity: Hypoechoic Shape: wider than tall. Margins: Smooth Echogenic foci: None Total points: 4 ACR TI-RADS category: LR 4, moderately suspicious Nodule number: 2 Location: Left mid Size: 0.8 x 0.7 x 0.6 cm. Not significantly changed. Composition: Solid Echogenicity: Hypoechoic Shape: wider than tall. Margins: Ill-defined Echogenic foci: None Total points: 4 ACR TI-RADS category: LR 4, moderately suspicious IMPRESSION: Subcentimeter thyroid nodules are not significantly changed. ACR TI-RADS definitions and recommendations: TI-RADS 1 (benign): 0 points. FNA not needed. TI-RADS 2 (not suspicious): 2 points. FNA not needed. TI-RADS 3 (mildly suspicious): 3 points. * FNA if 2.5 cm or larger, follow up if 1.5 cm or larger (at 1, 3, and 5 years). TI-RADS 4 (moderately suspicious): 4-6 points. * FNA if 1.5 cm or larger, follow up if 1 cm or larger (at 1, 2, 3, and 5 years). TI-RADS 5 (highly suspicious): 7 points or more. * FNA if 1 cm or larger, follow up if 0.5 cm or larger (every year for 5 years). Dictated by: Riley Thomas M.D. on 09/03/2021 at 16:17 Approved by: Riley Thomas M.D. on 09/03/2021 at 16:21
== END ==
PROVIDERS: PCP Family Medicine; Referring Provider Family Medicine; Visit Provider Family Medicine
DX: E04.2 Nontoxic multinodular goiter (principal)
CPT/HCPCS: 76536

== ENCOUNTER 2021-12-19 19:54 | Emergency (ER) | payer OTHER, SELFPAY ==
--- NOTE | 2021-12-19 20:07 | DI.RAD.S_ITS ---
PROCEDURE: XR FOOT LT MIN 3V INDICATIONS: possible fb TECHNIQUE: 3 views of the foot were acquired. COMPARISON: None. FINDINGS: Bones: No fractures or dislocations. No suspicious bony lesions. Soft tissues: No tibiotalar joint effusion. Achilles tendon appears normal. IMPRESSION: 1. No radiopaque foreign body Dictated by: Julius Perez M.D. on 12/19/2021 at 20:37 Approved by: Julius Perez M.D. on 12/19/2021 at 20:37
[2021-12-19 20:41] VITALS: BP 170/79; PULSE 71; RESP 15; TEMP 36.9; O2SAT 97
[2021-12-19] MEDS: OXYCODONE/ACETAMINOPHEN 5/325 TABLET 1 TAB PO (21:22)
--- NOTE | 2021-12-19 22:00 | ED_ITS ---
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 There was a minor amount of bleeding, no evidence of any retained materials but she is having significant pain and comes in for further evaluation. Related Data Home Medications Medication Instructions Recorded Confirmed cyclobenzaprine 10 mg tablet 5 - 20 mg PO BEDTIME PRN muscle 06/18/18 06/18/18 spasms diltiazem HCl 120 mg 120 mg PO BID 06/18/18 06/22/18 capsule,extended release 12 hr bxqjvmlwgfs-cpotpvfrd-wis C-Mn 500 1 tab PO BID 06/18/18 06/22/18 mg-400 mg capsule (Glucosamine Chondroitin Maximum Strength) hydrochlorothiazide 12.5 mg tablet 12.5 mg PO DAILY 06/18/18 06/22/18 magnesium 250 mg tablet 250 mg PO DAILY 06/18/18 06/22/18 venlafaxine 150 mg 75 mg PO BID 06/18/18 06/22/18 capsule,extended release 24 hr warfarin 5 mg tablet 5 mg PO DAILY 06/18/18 06/22/18 Previous Rx's Medication Instructions Recorded amoxicillin 875 mg-potassium 1 tab PO BID #14 tabs 12/09/19 clavulanate 125 mg tablet amoxicillin 875 mg-potassium 1 tab PO BID cellulitis #14 tabs 12/09/19 clavulanate 125 mg tablet oxycodone-acetaminophen 5 mg-325 1 tab PO Q6H PRN pain #10 tabs 12/19/21 mg tablet Allergies Allergy/AdvReac Type Severity Reaction Status Date / Time bee venom protein (honey bee) Allergy Unknown Unlisted Verified 12/09/19 16:58 hydrocodone AdvReac Mild Headache Verified 12/09/19 16:58 Review of Systems Review of Systems Narrative: Pertinent positive and negative findings as per HPI Remainder of review of systems is otherwise unremarkable for Constitutional: Fevers, chills, weakness ENT: No sore throat, neck pain, ear pain CV: Chest pain, palpitations, Respiratory: Cough, wheeze, dyspnea GI: Nausea, vomiting, diarrhea, : Dysuria, hematuria, Patient History Medical History Afib Ankle sprain Anxiety Bunion of right foot Chronic back pain Concussion Depression Dysfunctional uterine bleeding Dysphoric mood Fatigue Fibromyalgia GERD (gastroesophageal reflux disease) Grief reaction Hyperglycemia Hypertension Lumbar strain Metatarsalgia Migraine headache Murmur, cardiac Osteoarthropathy Pain in joint of right foot Palpitations Paresthesia of both hands Right calf pain Rotator cuff tear Sleep disturbance Somatic dysfunction of spine, cervical Somnolence Synovial cyst of left wrist Surgical History H/O repair of rotator cuff H/O: History of arthroscopic knee surgery History of breast augmentation History of breast surgery History of bunionectomy (~12/29/17) History of cholecystectomy History of elbow surgery History of endometrial ablation History of tonsillectomy Hx of hand surgery S/P foot surgery, right Status post wrist surgery Social History household members: spouse Smoking Status: Former smoker alcohol intake: current Smoking Status: Former smoker alcohol intake frequency: holidays/special occasions only Substance Use Type: does not use Exam Initial Vital Signs Initial Vital Signs: Vital Signs Temperature 98.4 F 12/19/21 20:41 Pulse Rate 71 12/19/21 20:41 Respiratory Rate 15 12/19/21 20:41 Blood Pressure 170/79 H 12/19/21 20:41 Pulse Oximetry 97 12/19/21 20:41 Oxygen Delivery Method 12/19/21 20:41 General: Alert appropriate in no acute distress Respiratory: Able to speak in full sentences, no obvious respiratory distress Skin: No obvious rashes, warm and dry Neurologic: Grossly intact no obvious asymmetries or abnormalities Psych: appropriate insight and affect, cooperative Extremity: Left forefoot with minor puncture wound on the plantar surface. Exquisitely tender to touch through forefoot including dorsum. There is no significant swelling or obvious bleeding. The dramatic pain seems out of proportion to the wound itself with no evidence of tenseness developing in the foot or concern for any type of compartment syndrome Course Orders Ordered: ED Orders 12/19/21 20:07 XR foot LT min 3V Stat Discontinued Medications Morphine Sulfate (Morphine 4 Mg/Ml Inj) 10 mg IM NOW ONE Stop: 12/19/21 22:07 Last Admin: 12/19/21 22:43 Dose: 10 mg Documented By: TRACY Oxycodone/Acetaminophen (Oxycodone/Acetaminophen 5/325 Tablet) 1 tab PO NOW ONE Stop: 12/19/21 21:06 Last Admin: 12/19/21 21:22 Dose: Not Given Documented By: KIRSTY Oxycodone/Acetaminophen (Oxycodone/Acetaminophen 5/325 Tablet) 1 tab PO NOW ONE Stop: 12/19/21 21:18 Last Admin: 12/19/21 21:22 Dose: 1 tab Documented By: KIRSTY Oxycodone/Acetaminophen (Oxycodone/Apap 5/325 Prepack) 1 bottle MISC SEEINSTR ONE Stop: 12/19/21 22:07 Last Admin: 12/19/21 22:43 Dose: 1 bottle Documented By: TRACY Vital Signs Vital signs: Vital Signs - 8 hr 12/19/21 20:41 12/19/21 23:18 Temperature 98.4 F Pulse Rate 71 64 Respiratory Rate 15 16 Blood Pressure 170/79 H 141/65 H Pulse Oximetry 97 97 Oxygen Delivery Method Room Air Room Air MDM - Wound/Laceration MDM Narrative Medical decision making narrative: 56-year-old woman with minor puncture wound bottom of the left foot with set sig nificant amount of pain. No evidence of residual foreign body or significant introduction of debris or foreign material. She is not diabetic. There is no evidence of significant bleeding into the wound she is on Coumadin so more bleeding might be expected. I suspect she probably had the insulting body injury nerve which is causing the significant pain. She is neurovascularly intact distal to the wound. She is up-to-date on her tetanus shot. At this point will ask her to elevate the foot. I do not see any indication for antibiotics at this time but have cautioned her carefully about signs and symptoms of wound infections, deep infections and complications of bleeding in deeper spaces as result of her anticoagulation. She verbalizes understanding, questions are answered and she is safe for home discharge Discharge Plan Departure Patient Disposition: Home Clinical Impression: Puncture wound of foot Instructions: DI for Puncture Wound Activity Restrictions/Additional Instructions: Thank you for coming in this evening. The puncture wound is quite small and there is no obvious foreign body appreciated on the x-ray. I suspect you either hit a nerve are having a small amount of bleeding in the mid foot which is wire having so much pain. Keeping the foot elevated will cer tainly help. Using 1-2 Percocet every 6 hours for pain and crutches if that is helpful for you. If you are choosing to use narcotics please make sure you are also using stool softener. If there is any redness, drainage, streaks running up your foot or dramatic swelling you need to come in for further evaluation Prescriptions: New oxycodone-acetaminophen 5-325 mg tablet 1 tab PO Q6H PRN (Reason: pain) Qty: 10 0RF No Action cyclobenzaprine 10 mg Tablet 5 - 20 mg PO BEDTIME PRN (Reason: muscle spasms) Rx Instructions: To help with sleep and pain venlafaxine 150 mg Capsule,Extended Release 24hr 75 mg PO BID diltiazem HCl 120 mg Capsule,Extended Release 12 Hr 120 mg PO BID warfarin 5 mg Tablet 5 mg PO DAILY Label Comments: ums-slt-gcj-monday takes 10mg monday, and monday takes 7.5 mg magnesium 250 mg Tablet 250 mg PO DAILY jzietfxphqu-tnmklbixt-bvb C-Mn [Glucosamine Chondroitin MaxStr] 500-400 mg Capsule 1 tab PO BID hydrochlorothiazide 12.5 mg Tablet 12.5 mg PO DAILY amoxicillin-pot clavulanate 875-125 mg tablet 1 tab PO BID Qty: 14 0RF amoxicillin-pot clavulanate 875-125 mg tablet 1 tab PO BID Qty: 14 0RF Referrals: Darron Fierro DO [Primary Care Provider] - Visit Report Forms: Patient Portal/API
[2021-12-19] MEDS: OXYCODONE/APAP 5/325 PREPACK 1 BOTTLE MISC (22:43)
[2021-12-19] MEDS: MORPHINE 4 MG/ML INJ 10 MG IM (22:43)
[2021-12-19 23:18] VITALS: BP 141/65; PULSE 64; RESP 16; O2SAT 97
== END 2021-12-19 23:19 | disposition home or self-care (01) ==
PROVIDERS: Emergency Provider Emergency Medicine; PCP Family Medicine
DX: S91.332A Puncture wound without foreign body, left foot, initial encounter (principal); Z79.01 Long term (current) use of anticoagulants
CPT/HCPCS: 73630; 96372; 99283; J2270

== ENCOUNTER 2023-06-10 00:58 | Emergency (ER) | payer OTHER, SELFPAY ==
[2023-06-10 01:02] VITALS: BP 157/70; PULSE 71; RESP 18; TEMP 36.4; O2SAT 99; BMI 32.8
--- NOTE | 2023-06-10 01:05 | DI.RAD.S_ITS ---
PROCEDURE: XR ANKLE LT MIN 3V INDICATIONS: Fall, twisted ankle TECHNIQUE: 3 views of the ankle were acquired. COMPARISON: None. FINDINGS: Bones: No fractures or dislocations. Ankle mortise is normally aligned. No suspicious bony lesions. Plantar calcaneal spur. Soft tissues: No tibiotalar joint effusion. Achilles tendon appears normal. IMPRESSION: No acute bony abnormality. Dictated by: Riley Thomas M.D. on 06/10/2023 at 1:42 Approved by: Riley Thomas M.D. on 06/10/2023 at 1:43
--- NOTE | 2023-06-10 01:05 | DI.RAD.S_ITS ---
PROCEDURE: XR FOOT LT MIN 3V INDICATIONS: Fall, twisted ankle TECHNIQUE: 3 views of the foot were acquired. COMPARISON: [facility], CR, XR FOOT LT MIN 3V, 12/19/2021, 19:56. FINDINGS: Bones: No fractures or dislocations. No suspicious bony lesions. Plantar calcaneal spur. Soft tissues: No tibiotalar joint effusion. Achilles tendon appears normal. IMPRESSION: No acute bony abnormality. Dictated by: Riley Thomas M.D. on 06/10/2023 at 1:43 Approved by: Riley Thomas M.D. on 06/10/2023 at 1:44
--- NOTE | 2023-06-10 01:17 | ED.LOWEXIN ---
HPI - Extremity Injury (Lower) General Chief Complaint: Extremity Injury, Lower Stated Complaint: possible broken L foot Time Seen by Provider: 06/10/23 01:11 Source: patient Mode of arrival: Wheelchair Limitations: no limitations History of Present Illness HPI Narrative: 58-year-old female on apixaban for atrial fibrillation, history of hypertension, anxiety/depression who states that she was walking earlier this evening wearing Crocs slipped in some mud and rolled her left ankle and banged her knee into the ground. Patient states knees a little tender where there is a bruise but can move without much issue. She has persistent pain over the dorsum of the foot and just underneath the ankle. She states she went home took some Tylenol, had used ice packs several times wrapped it but it woke her up from sleep. She was able to weightbear but was quite painful. Patient states has been persistent. No numbness, tingling or weakness. No other discoloration she does have some swelling on the lateral side. Denies any other injuries. States former smoker, did have a glass of wine this evening, no recreational drugs. Related Data Home Medications Medication Instructions Recorded Confirmed diltiazem HCl 120 mg 120 mg PO BID 06/18/18 05/29/23 capsule,extended release 12 hr fqlchtlrudh-mcyjtkbiu-wul C-Mn 500 1 tab PO BID 06/18/18 05/29/23 mg-400 mg capsule (Glucosamine Chondroitin Maximum Strength) magnesium 250 mg tablet 250 mg PO DAILY 06/18/18 05/29/23 hydrochlorothiazide 12.5 mg tablet 25 mg PO DAILY 04/25/23 05/29/23 Previous Rx's Medication Instructions Recorded apixaban 5 mg tablet (Eliquis) 5 mg PO BID #30 tabs 04/25/23 losartan 50 mg tablet 50 mg PO BID #60 tabs 04/25/23 duloxetine 60 mg capsule,delayed 60 mg PO DAILY #90 caps 05/29/23 release Allergies Allergy/AdvReac Type Severity Reaction Status Date / Time bee venom protein (honey bee) Allergy Unknown Swelling Verified 06/10/23 01:02 hydrocodone AdvReac Mild Headache Verified 06/10/23 01:02 Review of Systems Review of Systems ROS Unobtainable: All systems reviewed & are unremarkable except as noted in HPI and below Patient History Medical History Wears glasses PTSD (post-traumatic stress disorder) (~2012) Shoulder pain (~2010) Carpal tunnel syndrome (~2004) Chicken pox (~1976) Gallstones (~2001) Sleep disturbance Dysphoric mood Fatigue Ankle sprain Somnolence Somatic dysfunction of spine, cervical Rotator cuff tear Right calf pain Paresthesia of both hands Palpitations Migraine headache Metatarsalgia Lumbar strain Hyperglycemia Grief reaction GERD (gastroesophageal reflux disease) Dysfunctional uterine bleeding Concussion Chronic back pain Depression (~2004) Anxiety Hypertension Murmur, cardiac Afib (~2000) Fibromyalgia (~2017) Osteoarthropathy Synovial cyst of left wrist Pain in joint of right foot Bunion of right foot Surgical History Anesthesia History of breast augmentation History of endometrial ablation History of arthroscopic knee surgery History of breast surgery H/O: History of cholecystectomy Hx of hand surgery History of elbow surgery S/P foot surgery, right Status post wrist surgery H/O repair of rotator cuff History of tonsillectomy History of bunionectomy (~12/29/17) Family History Father History of heart disease Mother Cancer Brother Prostate cancer Brother Mental health problem Brother Mental health problem Epilepsy Family/Other Suicide Social History household members: spouse Smoking Status: Former smoker alcohol intake: current Smoking Status: Former smoker alcohol intake frequency: holidays/special occasions only Substance Use Type: does not use Exam Narrative Exam Narrative: GENERAL: Alert and oriented x three, female in mild distress. HEENT: Head normocephalic, atraumatic, EOMI, pupils reactive, face symmetric, moist mucous membranes NECK: Supple, full range of motion CARDIOVASCULAR: Regular rate and rhythm without murmurs, rubs or gallops. RESPIRATORY: Breath sounds equal bilaterally, no wheezes rales or rhonchi. ABDOMEN: Soft, nontender. Normoactive bowel sounds all 4 quadrants. No guarding or rebound, rigidity, no mass EXTREMITIES: Normal range of motion, no clubbing. Patient has some mild edema just inferior to the lateral malleoli of the left foot. She is some very mild tenderness over the 3rd metatarsal. No other bony tenderness of the right lower extremity. Does have good range of motion can plantar and dorsiflex but states it is more uncomfortable to plantar flex. 2+ dorsalis pedis. Cap refill less than 2 seconds in all 5 toes with normal sensation throughout with no obvious ecchymosis. No lacerations or abrasions noted. Neurovascularly intact NEUROLOGICAL: Cranial nerves II through XII grossly intact. Moving all extremities SKIN: Warm, dry, no petechiae, no rashes or lesions. Initial Vital Signs Initial Vital Signs: Vital Signs Temperature 97.5 F L 06/10/23 01:02 Pulse Rate 71 06/10/23 01:02 Respiratory Rate 18 06/10/23 01:02 Blood Pressure 157/70 H 06/10/23 01:02 Pulse Oximetry 99 06/10/23 01:02 Oxygen Delivery Method Room Air 06/10/23 01:02 Course Orders Ordered: ED Orders 06/10/23 01:05 XR ankle LT min 3V Stat XR foot LT min 3V Stat Vital Signs Vital signs: Vital Signs - 8 hr 06/10/23 01:02 06/10/23 02:00 Temperature 97.5 F L 97.3 F L Pulse Rate 71 74 Respiratory Rate 18 18 Blood Pressure 157/70 H 148/78 H Pulse Oximetry 99 98 Oxygen Delivery Method Room Air Room Air MDM - Extremity Injury (Lower) Imaging Data Extremity x-ray #1: Radiologist's Impression: [address] [id number] XRay Report Signed Patient: Devora Alford MR#: [id number] : 1965 Acct:[id number] Age/Sex: 58 / F Date of Service: 06/10/23 Loc: ED Accession Number: [id number] Procedure: XR foot LT min 3V Ordering Provider: Alondra Sarabia D.O. PROCEDURE: XR FOOT LT MIN 3V INDICATIONS: Fall, twisted ankle TECHNIQUE: 3 views of the foot were acquired. COMPARISON: [facility], XR FOOT LT MIN 3V, 12/19/2021, 19:56. FINDINGS: Bones: No fractures or dislocations. No suspicious bony lesions. Plantar calcaneal spur. Soft tissues: No tibiotalar joint effusion. Achilles tendon appears normal. IMPRESSION: No acute bony abnormality. Dictated by: Riley Thomas M.D. on 06/10/2023 at 1:43 Approved by: Riley Thomas M.D. on 06/10/2023 at 1:44 Extremity x-ray #2: Radiologist's Impression: [address] [address] XRay Report Signed Patient: Devora Alford MR#: [id number] : 1965 Acct:[id number] Age/Sex: 58 / F Date of Service: 06/10/23 Loc: ED Accession Number: [id number] Procedure: XR ankle LT min 3V Ordering Provider: Alondra Sarabia D.O. PROCEDURE: XR ANKLE LT MIN 3V INDICATIONS: Fall, twisted ankle TECHNIQUE: 3 views of the ankle were acquired. COMPARISON: None. FINDINGS: Bones: No fractures or dislocations. Ankle mortise is normally aligned. No suspicious bony lesions. Plantar calcaneal spur. Soft tissues: No tibiotalar joint effusion. Achilles tendon appears normal. IMPRESSION: No acute bony abnormality. Dictated by: Riley Thomas M.D. on 06/10/2023 at 1:42 Approved by: Riley Thomas M.D. on 06/10/2023 at 1:43 MDM Narrative Medical decision making narrative: 58-year-old female with complaint of inverting her left foot with pain at the lower ankle and over the dorsum of the foot. Patient does have some mild swelling just underneath the lateral malleoli and some tenderness over the 3rd metacarpal. Otherwise normal range of motion neurovascularly intact. X-rays were obtained. They show no acute fracture. Patient has crutches at home as well as an ortho boot for that foot she plans to use. She defers any crutches or orthopedic devices here. Discussed plan need for follow-up and return precautions. Discharge Plan Departure Patient Disposition: Home Clinical Impression: Ankle sprain Instructions: DI for Ankle Sprain Activity Restrictions/Additional Instructions: Follow-up with your physician for recheck in 7-10 days your symptoms are persisting. You may weightbear as tolerated. You may take Tylenol up to a 1000 mg every 6 hours. Splint Care: Keep splint clean and dry. Elevated affected body part to decrease swelling. OK to use ice pack on the affected body part. Use for 15-20 minutes each time, for 5-6x per day. If you develop worsening pain, numbness, tingling, discoloration of the affected body part, loosen the splint by loosening the INEZ wrap, and either see your doctor for an urgent re-assessment, or return to the Emergency Department. Return to the Emergency Department for any new or worsening symptoms. Prescriptions: No Action duloxetine 60 mg capsule,delayed release(DR/EC) 60 mg PO DAILY Qty: 90 3RF losartan 50 mg tablet 50 mg PO BID Qty: 60 3RF hydrochlorothiazide 12.5 mg tablet 25 mg PO DAILY Eliquis 5 mg tablet 5 mg PO BID Qty: 30 0RF diltiazem HCl 120 mg Capsule,Extended Release 12 Hr 120 mg PO BID magnesium 250 mg Tablet 250 mg PO DAILY xiexigsbdha-ojghszkrb-fsu C-Mn [Glucosamine Chondroitin MaxStr] 500-400 mg Capsule 1 tab PO BID Referrals: Maureen Huerta MD [Primary Care Provider] - Stand Alone Forms: Patient Portal/API
[2023-06-10 02:00] VITALS: BP 148/78; PULSE 74; RESP 18; TEMP 36.3; O2SAT 98
== END 2023-06-10 02:01 | disposition home or self-care (01) ==
PROVIDERS: Emergency Provider Emergency Medicine; PCP Student in an Organized Health Care Education/Training Program
DX: S93.402A Sprain of unspecified ligament of left ankle, initial encounter (principal); W01.0XXA Fall on same level from slipping, tripping and stumbling without subsequent striking against object, initial encounter; Y93.01 Activity, walking, marching and hiking
CPT/HCPCS: 73610; 73630; 82274; 99281; 99283

== ENCOUNTER → 2023-07-19 10:30 | Outpatient (CLI) | payer OTHER, SELFPAY ==
[2023-07-20 08:26] LABS: Fecal Immunochemical Test Negative (Negative)
== END ==
LOC: LAB 07-21 10:34
PROVIDERS: PCP Student in an Organized Health Care Education/Training Program; Referring Provider Student in an Organized Health Care Education/Training Program; Visit Provider Student in an Organized Health Care Education/Training Program
DX: Z12.11 Encounter for screening for malignant neoplasm of colon (principal)
CPT/HCPCS: 82274

== ENCOUNTER → 2023-08-29 12:32 | Outpatient (CLI) | payer OTHER, SELFPAY | PROVIDERS: PCP Student in an Organized Health Care Education/Training Program; Referring Provider Student in an Organized Health Care Education/Training Program; Visit Provider Student in an Organized Health Care Education/Training Program | DX: E04.1 Nontoxic single thyroid nodule (principal) | CPT/HCPCS: 36415; 84443 ==

== ENCOUNTER → 2023-09-07 15:08 | Outpatient (CLI) | payer OTHER, SELFPAY ==
--- NOTE | 2023-09-07 15:30 | DI.US.S_ITS ---
PROCEDURE: US THYROID INDICATIONS: thyroid nodule TECHNIQUE: Real-time scanning was performed of the thyroid gland, with image documentation. COMPARISON: [facility], US, US THYROID, 09/03/2021, 12:16. FINDINGS: Right: Thyroid lobe measures 4.8 x 1.7 x 1.7 cm, and is homogeneous in echotexture. Left: Thyroid lobe measures 4.4 x 1.5 x 1.6 cm, and is homogenous in echotexture. Isthmus: 0.4 cm thick. Nodule number: 1 Location: Right mid Size: 0.8 x 0.7 x 0.6 cm, previously 0.8 x 0.8 x 0.6 cm. Composition: Solid Echogenicity: Hypoechoic Shape: wider than tall. Margins: Smooth Echogenic foci: Punctate Total points: 7 ACR TI-RADS category: 5 Nodule number: 2 Location: Left mid Size: 0.9 x 0.5 x 0.6 cm, previously 0.8 x 0.7 x 0.6 cm. Composition: Predominantly solid Echogenicity: Hypoechoic Shape: wider than tall. Margins: Smooth Echogenic foci: Non Total points: 4 ACR TI-RADS category: 4 IMPRESSION: Stable bilateral subcentimeter hypoechoic thyroid nodules. Continue follow-up schedule as below ACR TI-RADS definitions and recommendations: TI-RADS 1 (benign): 0 points. FNA not needed. TI-RADS 2 (not suspicious): 2 points. FNA not needed. TI-RADS 3 (mildly suspicious): 3 points. * FNA if 2.5 cm or larger, follow up if 1.5 cm or larger (at 1, 3, and 5 years). TI-RADS 4 (moderately suspicious): 4-6 points. * FNA if 1.5 cm or larger, follow up if 1 cm or larger (at 1, 2, 3, and 5 years). TI-RADS 5 (highly suspicious): 7 points or more. * FNA if 1 cm or larger, follow up if 0.5 cm or larger (every year for 5 years). Approved by: Carlo Shah M.D. on 09/07/2023 at 18:34
== END ==
PROVIDERS: PCP Student in an Organized Health Care Education/Training Program; Referring Provider Student in an Organized Health Care Education/Training Program; Visit Provider Student in an Organized Health Care Education/Training Program
DX: E04.2 Nontoxic multinodular goiter (principal)
CPT/HCPCS: 76536

== ENCOUNTER → 2024-01-03 08:51 | Outpatient (CLI) | payer OTHER, SELFPAY ==
--- NOTE | 2024-01-03 08:52 | DI.US.S_ITS ---
PROCEDURE: US PELVIC COMPLETE INDICATIONS: pelvic cramping TECHNIQUE: Real-time scanning was performed of the pelvic organs, with image documentation. Additional endovaginal scanning was necessary due to incomplete visualization of the adnexal and endometrial structures by transabdominal scanning. COMPARISON: None. FINDINGS: Uterus: Uterus is anteverted and normal in size at 6.8 x 4.0 x 4.7 cm. The myometrium is homogeneous. The endometrium measures 3 mm combined thickness. Ovaries: The bilateral ovaries were not visualized on today's exam. Other: No pathologic free abdominal or pelvic fluid. IMPRESSION: Normal appearance of the uterus. Bilateral ovaries were not visualized on today's evaluation We strive to produce accurate, complete, and clear reports of imaging services. To assist us in improving patient care, this report was composed using standard report templates and voice recognition software. Therefore, it may contain abnormal punctuation, insertions and/or omissions. Occasional wrong-word or sound-alike substitutions may occur. Though we review the report and make efforts to correct it, we do recommend that the report be read carefully in proper context to recognize any text inaccuracies. Dictated by: Reinaldo Horner M.D. on 01/03/2024 at 11:31 Approved by: Reinaldo Horner M.D. on 01/03/2024 at 11:32
== END ==
LOC: US 08:52
PROVIDERS: PCP Student in an Organized Health Care Education/Training Program; Referring Provider Student in an Organized Health Care Education/Training Program; Visit Provider Student in an Organized Health Care Education/Training Program
DX: R10.9 Unspecified abdominal pain (principal)
CPT/HCPCS: 76856

== ENCOUNTER → 2024-02-03 08:27 | Outpatient (CLI) | payer OTHER, SELFPAY ==
[2024-02-03 10:19] LABS: Blood Urea Nitrogen 19 mg/dL (7-17); Calcium 9.4 mg/dL (8.4-10.2); Carbon Dioxide 30 mmol/L (22-32); Chloride 104 mmol/L (98-107); Estimated Glomerular Filt Rate > 60 mL/min (>60); Glucose 103 mg/dL (80-110); HEMOLYSIS < 15 (0-50); Potassium 4.5 mmol/L (3.4-5.1); Sodium 138 mmol/L (137-145)
== END ==
PROVIDERS: PCP Student in an Organized Health Care Education/Training Program; Referring Provider Nurse Practitioner; Visit Provider Nurse Practitioner
DX: Z51.81 Encounter for therapeutic drug level monitoring (principal)
CPT/HCPCS: 36415; 80048

== ENCOUNTER → 2024-06-07 08:26 | Outpatient (CLI) | payer OTHER, SELFPAY ==
[2024-06-07 09:48] LABS: Blood Urea Nitrogen 21 mg/dL (7-17); Calcium 9.6 mg/dL (8.4-10.2); Carbon Dioxide 25 mmol/L (22-32); Chloride 102 mmol/L (98-107); Estimated Glomerular Filt Rate > 60 mL/min (>60); Glucose 125 mg/dL (80-110); HEMOLYSIS < 15 (0-50); Sodium 137 mmol/L (137-145)
== END ==
LOC: LAB 08:28
PROVIDERS: PCP Student in an Organized Health Care Education/Training Program; Referring Provider Nurse Practitioner; Visit Provider Nurse Practitioner
DX: Z51.81 Encounter for therapeutic drug level monitoring (principal)
CPT/HCPCS: 36415; 80048

== ENCOUNTER → 2024-07-30 11:49 | Outpatient (CLI) | payer OTHER, SELFPAY ==
--- NOTE | 2024-07-30 11:50 | DI.MG.S_ITS ---
BILATERAL DIGITAL SCREENING MAMMOGRAM 3D/2D WITH CAD: 07/30/2024 CLINICAL: Routine screening. Family history of breast cancer. Comparison is made to exam dated: 06/27/2022 mammogram - [facility]. There are scattered areas of fibroglandular density (category b / 25%-50% glandular tissue). Current study was also evaluated with a Computer Aided Detection (CAD) system. No significant masses, calcifications, or other findings are seen in either breast. There has been no significant interval change. IMPRESSION: NEGATIVE There is no mammographic evidence of malignancy. A 1 year screening mammogram is recommended. Based on the Tyrer Cuzick model (a risk assessment model) the patient's lifetime risk is 13.8% and her 10 year risk is 5.7%. According to the ACR, ACS, and NCCN guidelines, an annual breast MRI exam along with mammogram is recommended if the patient's lifetime risk is 20% or greater. This exam was interpreted at Station ID: [id number]. NOTE: For mammograms, a report in lay terms will be sent to the patient. Approximately 15% of breast malignancies will not be visualized mammographically. In the management of a palpable breast mass, a negative mammogram must not discourage biopsy of a clinically suspicious lesion. Electronically Signed By: Reinaldo stewart/kassandra:07/31/2024 17:04:11 letter sent: Normal Exam ACR BI-RADS Category 1: Negative
== END ==
PROVIDERS: PCP Student in an Organized Health Care Education/Training Program; Referring Provider Student in an Organized Health Care Education/Training Program; Visit Provider Student in an Organized Health Care Education/Training Program
DX: Z12.31 Encounter for screening mammogram for malignant neoplasm of breast (principal); Z80.3 Family history of malignant neoplasm of breast
CPT/HCPCS: 77063; 77067

== ENCOUNTER → 2025-02-15 13:00 | Outpatient (CLI) | payer OTHER, SELFPAY ==
--- NOTE | 2025-02-15 13:02 | DI.RAD.S_ITS ---
PROCEDURE: XR TOE RT MIN 2V INDICATIONS: Previous surgeries, new toe injury TECHNIQUE: Three views of the right great toe(s) acquired. COMPARISON: None. FINDINGS: Bones: There is a possible cortical disruption along the dorsal aspect of the 1st distal phalanx seen on the lateral view only. No other acute fracture planes are seen. Prior fusion at the 1st MTP joint. Hardware appears intact. No radiographic signs of hardware loosening. No suspicious bony lesions. Soft tissues: No suspicious soft tissue densities. IMPRESSION: Questionable nondisplaced fracture along the dorsal aspect of the 1st distal phalanx. Correlate with point tenderness. This could also be summation artifact. Dictated by: Rekha Whitten M.D. on 02/16/2025 at 1:16 Approved by: Rekha Whitten M.D. on 02/16/2025 at 1:21
== END ==
LOC: RAD 13:01
PROVIDERS: PCP Student in an Organized Health Care Education/Training Program; Referring Provider Nurse Practitioner Family; Visit Provider Nurse Practitioner Family
DX: S99.929A Unspecified injury of unspecified foot, initial encounter (principal); X58.XXXA Exposure to other specified factors, initial encounter; Z98.1 Arthrodesis status
CPT/HCPCS: 73660